=== PATIENT | male | born 1965 | race African-American/Black ===

== ENCOUNTER 2017-08-30 00:47 | Emergency (ER) | payer OTHER ==
[2017-08-30] MEDS ORDERED: ONDANSETRON ODT 4 MG TAB (6 TAB/ER DISP) PO PRN (01:47)
[2017-08-30] MEDS ORDERED: CEFTRIAXONE INJ 250 MG VIAL IM ONE (01:47)
[2017-08-30] MEDS ORDERED: AZITHROMYCIN 1 GM SUSP PACKET PO ONE (01:47)
[2017-08-30] MEDS ORDERED: METRONIDAZOLE 500 MG TABLET PO ONE (01:48)
--- NOTE | 2017-08-30 01:52 | ER Document Report ---
ED General - General Chief Complaint: STD Exposure Stated Complaint: OTHER Time Seen by Provider: 08/30/17 01:47 TRAVEL OUTSIDE OF THE [place] IN LAST 30 DAYS: No - HPI Patient complains to provider of: STD exposure Notes: Patient states he was going through the medicine cabinet of his sexual partner found the bottle Flagyl and then was told to come to the ER by his sexual partner to be treated for trichomonas. Patient states no drainage from his penis although there is a funny feeling within the penis. Denies any dysuria. Denies any other lesions. Patient resting currently upon my evaluation. - Related Data Allergies/Adverse Reactions: No Known Allergies Allergy (Unverified 08/30/17 00:50) Past Medical History - Social History Smoking Status: Unknown if Ever Smoked Family History: Reviewed & Not Pertinent Review of Systems - Review of Systems Constitutional: No symptoms reported EENT: No symptoms reported Cardiovascular: No symptoms reported Respiratory: No symptoms reported Gastrointestinal: No symptoms reported Genitourinary: Other - STD exposure Male Genitourinary: No symptoms reported Musculoskeletal: No symptoms reported Skin: No symptoms reported Hematologic/Lymphatic: No symptoms reported Neurological/Psychological: No symptoms reported Physical Exam - Vital signs Vitals: Temp Pulse Resp BP Pulse Ox 98.6 F 82 18 125/86 H 96 08/30/17 00:54 08/30/17 00:54 08/30/17 00:54 08/30/17 00:54 08/30/17 00:54 - General General appearance: Appears well In distress: None - Respiratory Respiratory status: No respiratory distress Chest status: Nontender - Abdominal Inspection: Normal Distension: No distension Bowel sounds: Normal Tenderness: Nontender - Genitourinary Tenderness: Nontender Cremasteric reflex: Normal Scrotum: Normal - Extremities General upper extremity: Normal inspection, Nontender General lower extremity: Normal inspection, Nontender - Psychological Associated symptoms: Normal affect, Normal mood Course - Re-evaluation Re-evalutation: 08/30/17 02:48 Patient was given treatment for gonorrhea chlamydia and trichomonas. Patient was discharged home. - Vital Signs Vital signs: Temp Pulse Resp BP Pulse Ox 98.6 F 84 18 132/68 H 100 08/30/17 02:31 08/30/17 02:31 08/30/17 02:31 08/30/17 02:31 08/30/17 02:31 Discharge - Discharge Clinical Impression: Exposure to sexually transmitted disease (STD) Condition: Good Disposition: HOME, SELF-CARE Instructions: Chlamydia ([facility]), Gonorrhea ([facility]), Metronidazole ([facility]), Trichomonas Infection ([facility]) Additional Instructions: Your seen today for exposure of a sexual transmitted disease. We will treat you for gonorrhea with Rocephin we will treat chlamydia with azithromycin and we will treat trichomonas with a seven-day course of Flagyl. May take the Zofran as provided here in ER for any nausea he may experience. Return to the ER for any concerns. Please avoid sexual contact for 2 weeks. Prescriptions: Metronidazole [Flagyl] 500 mg PO BID #14 tablet Forms: Return to Work
[2017-08-30] MEDS ORDERED: LIDOCAINE 1% INJ-PF (10 MG/ML) 30 ML SDV ONE (02:07)
[2017-08-30 02:33] VITALS: BP 132/68
== END 2017-08-30 02:31 | disposition home or self-care (01) ==
LOC: ER 00:47
DX: Z20.2 Contact with and (suspected) exposure to infections with a predominantly sexual mode of transmission (principal); R10.2 Pelvic and perineal pain
CPT/HCPCS: 99283; 96372; J3490; Q0144; J0696